=== PATIENT | female | born 1985 | race Caucasian/White ===

== ENCOUNTER 2016-10-23 03:59 | Inpatient (IN) ==
[2016-10-23 05:31] LABS: Basophils % 0.2 %; Eosinophils # 0.1 K/mcL (0.0-0.6); Eosinophils % 0.3 %; Hematocrit 39.4 % (35.3-44.9); Hemoglobin 13.5 g/dL (11.5-15.4); Immature Granulocytes % 1.2 % (0-4); Lymphocytes # 1.5 K/mcL (0.6-4.6); Lymphocytes % 8.4 %; Mean Corpuscular HGB Conc 34.3 g/dL (31.6-35.5); Mean Corpuscular Hemoglobin 31.6 pg (28.0-33.3); Mean Corpuscular Volume 92.3 fL (83.0-100.0); Mean Platelet Volume 10.6 fL (9.4-12.4); Monocytes # 0.8 K/mcL (0.0-1.3); Monocytes % 4.3 %; Neutrophils # 15.2 K/mcL (1.6-8.9); Platelet Count 232 K/mcL (140-400); Red Blood Count 4.27 M/mcL (3.82-4.97); Red Cell Distribution Width 13.4 % (11.5-14.5); Segmented Neutrophils % 85.6 %
--- NOTE | 2016-10-23 05:44 | Anesthesia Evaluation PreOp ---
Date of Encounter: 10/23/16 Time of Encounter: 05:23 - Past History Planned Operation: vaginal del, Cardiac History: Denies any Significant Hx Pulmonary History: Denies Any Significant HX PHYSICAL SECURITY ENGINEER History: Denies Any Significant HX Other Medical History: Denies Any Significant HX Anesthesia History: No Prior Anesthetic Complications, Past Anesthesia Alcohol Use: none Drug use: none Anesthesia Results - Labs 10/23/16 05:26 Anesthesia Exam - HEENT Pupil (Motor): Pupils equal Mallampati: III Teeth: Normal Oral Opening: Greater than 3 - PHYSICAL SECURITY ENGINEER LOC: Oriented PHYSICAL SECURITY ENGINEER Motor: Normal RUE, Normal LUE, Normal RLE, Normal LLE, Normal Face PHYSICAL SECURITY ENGINEER Sensory: Normal: RUE, LUE, RLE, LLE, Face - Cardiac Rhythm: Regular Murmur: None - Pulmonary Breath Sounds: bilateral Clear Respiratory Effort: Symmetrical Anesthesia Assess/Plan ASA Score: 2 Modified [place] Scale for Level of Consciousness: Cooperative, oriented, and tranquil Anesthetic Plan: General, Regional Monitoring Plan: Standard Monitors
[2016-10-23] MEDS ORDERED: Epidural Premix (fent/bupiv) 110 ML EP ONE ×2 (05:54→17:59)
--- NOTE | 2016-10-23 06:20 | OB/GYN History & Physical ---
Date of Encounter: 10/23/16 Time of Encounter: 06:16 Assessment and Plan (1) 39 weeks gestation of Current visit: Yes Status: Acute Patient is a at 39 weeks + 4 days who presents with increasing contractions , no rupture of membranes. Will monitor progression of labor and augment as needed. History of Present Illness Chief complaint: 39 weeks gestation with increasing contractions HPI: Ms. Gómez is a 31 year old female at 39 weeks + 4 days who presents with increasing contractions. Patient reports that over the last several hours her contractions have been getting stronger and closer together. She denies any loss of fluids but reports good movement. She denies any headache, vision changes, SOB, chest pain or changes in bowel or bladder function. Patient was seen in the office yesterday by Dr. Sepulveda and was told at that time she was 3cm dilated. She denies any complications with blood pressure, blood sugar or bleeding during this . Past Med Surg Social Fam HX - Past Medical History Medical history: no medical history Psychiatric history: no psych history - Past Surgical History Surgical History: no surgical history - Social History Smoking Status: Former smoker Alcohol use: none Drug use: none - Family History Sister Living Status: Still Living Hx Family Endocrine Disorder: Yes (diabetes type 1) Obstetrical History - Pregnancies : 1 Para: 0 Term: 0 : 0 Ab's: 0 Livin Review of System OB - Constitutional Constitutional ROS IM: no chills, no fever(s) - Cardiovascular Cardiovascular: no chest pain, no palpitations - Respiratory Respiratory: no cough, no dyspnea, no wheezing - Gastrointestinal Gastrointestinal: no constipation, no diarrhea, no nausea, no vomiting - Genitourinary Genitourinary: no urinary frequency, no urinary hesitancy - Neurological Nerological: no confusion, no headache(s), no other visual disturbances Exam - Constitutional Constitutional: well developed, well nourished, no acute distress, average body habitus - HEENT HEENT: Normocephaly, Mucus Membranes Moist - Lungs Respiratory exam: CTAB - Cardiovascular Cardiovascular exam: RRR - Abdomen Abdomen: Present: bowel sounds normal, gravid - Extremities Extremities exam: normal inspection - Cervix Dilation: 3 (per nursing evaluation) Results Result Diagrams: 10/23/16 05:26 Abnormal lab results WBC 17.8 K/mcL (4.3-11.1) H 10/23/16 05:26 Neutrophils # 15.2 K/mcL (1.6-8.9) H 10/23/16 05:26 All other labs normal.
--- NOTE | 2016-10-23 08:21 | OB Labor Progress Note ---
Date of Encounter: 10/23/16 Time of Encounter: 08:19 Labor Progress Note - Subjective Subjective: The patient is uncomfortable with contractions which are spontaneous but not regular. Overnight she has made a mild amount of cervical change. She has not felt comfortable going home and would like to have her labor augmented. - Vital Signs Vital Signs: Afebrile, vital signs stable - Cervix Cervix: 3-4/80/-1 per RN - Heart Tones Heart Tones: 130s baseline CAT 1 - [place]: Irregular every 4-6 minutes, mild to palpation - Interventions Interventions: 39 week 4 day IUP with prolonged latent phase labor - Plan Plan: Augmentation with by mouth Cytotec. Risks and benefits are reviewed with patient and she is agreeable. She is requesting an epidural and contractions become more uncomfortable and frequent
[2016-10-23] MEDS ORDERED: Ondansetron 4 MG/2 ML VIAL IVP PRN ×2 (08:31→11:31)
[2016-10-23] MEDS ORDERED: miSOPROStol 25 MCG TABLET PO SCH ×2 (08:31→12:00)
[2016-10-23] MEDS ORDERED: Famotidine 20 MG/2 ML VIAL IVP PRN (08:31)
[2016-10-23] MEDS ORDERED: Naloxone 0.4 MG/ML INJ IVP PRN (08:31)
[2016-10-23] MEDS: Ringers Solution, Lactated 1,000 ML IVC SCH ×2 (10:06→16:26)
[2016-10-23] MEDS ORDERED: *HR* FentaNYL (PF) 100 MCG/2 ML VIAL ONE (10:45)
[2016-10-23] MEDS ORDERED: Bupivacaine-MPF 0.25% 10 ML VIAL ONE (10:45)
[2016-10-23] MEDS ORDERED: Bupivacaine-MPF 0.25% 10 ML VIAL EP ONE (11:31)
[2016-10-23] MEDS ORDERED: EPHEDrine 50 MG/ML VIAL IVP PRN (11:31)
[2016-10-23] MEDS ORDERED: *HR* FentaNYL (PF) 100 MCG/2 ML VIAL EP ONE (11:31)
--- NOTE | 2016-10-23 11:34 | Anesthesia Procedures ---
Date of Encounter: 10/23/16 Time of Encounter: 10:55 Procedures: Anesthesia - Epidural/Spinal Patient ID/Chart reviewed: Yes Patient examined: Yes OB Eval: Gestational age: 39.4 OB Eval: : 1 OB Eval: Hx Para: 0 OB Eval: Dilated at (cm): 4 OB Eval: Contractions: Non-stressed pattern Consent Obtained: Yes Supplemental Oxygen: None/Room Air Site Prep: Aseptic Technique, Sterile prep and drape, Povidone-Iodine 1% Patient position: upright Local Anesthetic: Lidocaine 1% Amount of Local Anesthetic used: 3 Touhy Needle Gauge: 18 Touhy Needle Depth (cm): 7 Catheter Depth at Skin (cm): 14 Test Dose (1.5% Lido + Epi): Volume given (mls): 3 Test Dose Result: Negative Loading Dose: 0.25% Marcaine (mls): 10 Loading Dose: Fentanyl (mcg): 100 Loading Dose Administered: Thru Catheter Infusion Med: 0.125% Bupivacaine w/ 2 mcg/ml Fentanyl Infusion Rate (mls/hr): [address]: Tegaderm, Tape Interspace Used: L4-L5 Loss of Resistance (CHELSY): Yes Blood: No CSF: No Paresthesia: No Procedure: ALLISON placed in upright position 1st pass without any immediate noted complications. VSS throughout. Vitals + FHT's: 1055 BP 145 85 R 16 P 92 Spo2 98 1130 125/67 R 16 P 78 Spo2 97 FHT 120s
[2016-10-23] MEDS ORDERED: Epidural Premix (fent/bupiv) 110 ML EP SCH (11:45)
--- NOTE | 2016-10-23 14:01 | OB Labor Progress Note ---
Date of Encounter: 10/23/16 Time of Encounter: 13:59 Labor Progress Note - Subjective Subjective: Patient resting in bed, denies any pain at this time. Discussed POC with patient. Patient denies any questions or concerns. - Cervix Cervix: 7/100/-1 - Heart Tones Heart Tones: 120 bpm moderate variability +15x15 accels no decels noted. Cat. 1 tracing. - [place]: 3-4 min apart - Interventions Interventions: SVE, AROM small amount of clear fluid. IUPC placed without difficulty. Patient tolerated well. Pericare provided. - Plan Plan: Continue labor management. Will start Pitocin per protocol if needed for adequate labor pattern.
[2016-10-23] MEDS ORDERED: Oxytocin 20 units/ LR 1000 mL 20 UNIT/1,000 ML BAG IVC ONE ×2 (20:30→22:19)
--- NOTE | 2016-10-23 21:33 | OB/GYN Procedure Note ---
Delivery - Delivery Date: 10/23/16 Provider: Criselda Shoemaker Intrapartum events: none Delivery induction: none Delivery augmentation: rupture of membranes (cytotec 25 mcg) Delivery monitor: external FHT, external uterine, internal uterine Anesthesia: epidural Estimated Blood Loss: 100 - Infant (s) Infant A Infant Delivery Date: 10/23/16 Infant Delivery Time: 21:07 Presentation: vertex Position: RITCHIE Route of delivery: Gender: Female Viability: Viable Pounds: 6 Ounces: 12 at 1 minute: 9 at 5 mins: 9 Shoulder Dystocia: not encountered Specimens collected: cord blood Placenta: spontaneous, uterine exploration Cord: 3 umbilical vessels - Repair Episiotomy: none Laceration Description: Perineal - 2nd Degree, Labial - Complications Delivery complications: none Delivery comments: The patient was complete and pushing with a spontaneous vaginal delivery in the RITCHIE position with an epidural for anesthesia of a vigorous female infant weighing 6 lbs. 12 oz. with Apgars of 9 at 1 minute and 9 at 5 minutes. The infant was placed on the maternal abdomen and cord was clamped and cut after pulsations ceased. Cord blood was obtained. Placenta was delivered spontaneous and intact. Uterine cavity was explored and no retained products of conception were identified. No cervical lacerations noted. There was a superficial right labial laceration which was repaired with 4-0 Vicryl in a running nonlocking fashion. There was a second-degree midline perineal laceration which was repaired with 3-0 Vicryl in the usual fashion. Estimated blood loss 100 mL complications none. Mother and infant recovering in stable condition in the LDR. - Disposition Mom disposition: stable in LDR [place] disposition: stable in LDR
[2016-10-24] MEDS ORDERED: Measles/Mumps/Rubella Vacc 0.5 ML VIAL SQ PRN (00:11)
[2016-10-24] MEDS ORDERED: *HR* HYDROcodone/Acet 5/325 mg TABLET PO PRN (00:11)
[2016-10-24] MEDS ORDERED: Ibuprofen 600 MG TABLET PO PRN (00:11)
[2016-10-24] MEDS ORDERED: Rho Immune Globulin 1,500 UNIT SYRINGE IM PRN (00:11)
[2016-10-24] MEDS ORDERED: Oxytocin 20 units/ LR 1000 mL 20 UNIT/1,000 ML BAG IVC ONE (00:11)
[2016-10-24] MEDS ORDERED: Oxytocin 20 units/ LR 1000 mL 20 UNIT/1,000 ML BAG IV SCH (00:15)
[2016-10-24] MEDS: Prenatal Vit/FA 1 EACH TABLET PO SCH (08:11)
--- NOTE | 2016-10-24 09:52 | OB/GYN Progress Note ---
Date of Encounter: 10/24/16 Time of Encounter: 09:50 - Assessment and Plan (1) Status post vaginal delivery Current Visit: Yes Status: Acute Continue routine care discharge home tomorrow (2) Breast feeding status of mother Current Visit: Yes Status: Acute support prn Subjective - Subjective Principal diagnosis: day 1 Interval history: Patient doing well. Female is breast feeding. Patient denies any questions or concerns. Fundus is firm at U/1. small amount of lochia noted without clots. Patient reports: appetite normal, voiding normally, pain well controlled, ambulating normally [place]: doing well, nursing well Objective - Latest Vital Signs Latest vital signs: Vital Signs Temp Pulse Resp BP Pulse Ox 10/24/16 08:35 97.5 F L 86 16 111/71 98 10/24/16 01:50 98.4 F 84 16 115/71 95 10/24/16 01:00 98.2 F 92 16 109/64 95 10/23/16 23:50 97.8 F 89 16 115/76 96 Intake and Output 10/23/16 10/24/16 10/24/16 23:59 07:59 15:59 Intake Total 0 / 0 500 / 500 Output Total 850 / 850 500 / 500 Balance -850 / -850 0 / 0 Intake: Oral 0 / 0 500 / 500 Output: Urine 850 / 850 500 / 500 Other: Weight 82.6 kg 82.5 kg Patient Weight 10/24/16 23:59 Weight 82.5 kg - Exam Lungs: bilateral: normal Chest: Normal S1, Normal S2 Extremities: Present: normal Abdomen: Present: normal appearance, soft Uterus: Present: normal, firm Uterus Position: 1 Finger Below Umbilicus, Midline - Labs Labs: Laboratory Results - last 24 hr 10/23/16 21:30 Baby's Blood Type O RH NEGATIVE Mother's Blood Type O RH NEGATIVE Rhogam Indicated NO
[2016-10-25 08:20] VITALS: BP 111/74
[2016-10-25] MEDS: Prenatal Vit/FA 1 EACH TABLET PO SCH (08:26)
--- NOTE | 2016-10-25 09:31 | Discharge Summary ---
Date of Encounter: 10/25/16 Time of Encounter: 09:29 - Discharge Diagnosis (1) Status post vaginal delivery Priority: Primary Status: Acute Comments: Continue routine care discharge home today (2) Breast feeding status of mother Priority: Secondary Status: Acute Comments: continue support prn - Discharge Medications Prescriptions: Breast Pump [BREAST PUMP] 1 each .ROUTE AD #1 each Home Medications: Breast Pump [BREAST PUMP] 1 each .ROUTE AD #1 each 10/25/16 [Rx] Vit/FA 1 each PO DAILY tablet 10/25/16 [Rx] Allergies/Adverse Reactions: Allergies Penicillins Allergy (Verified 10/23/16 08:29) Numbness numbness to legs. Data Procedures and tests throughout hospitalization: Laboratory Tests 10/23/16 10/23/16 05:26 21:30 WBC 17.8 H RBC 4.27 Hgb 13.5 Hct 39.4 MCV 92.3 MCH 31.6 MCHC 34.3 RDW 13.4 Plt Count 232 MPV 10.6 Immature Gran % 1.2 Seg Neutrophils % 85.6 Lymphocytes % 8.4 Monocytes % 4.3 Eosinophils % 0.3 Basophils % 0.2 Neutrophils # 15.2 H Lymphocytes # 1.5 Monocytes # 0.8 Eosinophils # 0.1 Basophils # 0.0 Baby's Blood Type O RH NEGATIVE Mother's Blood Type O RH NEGATIVE Rhogam Indicated NO Date of admission: 10/23/16 03:59 Primary care physician: PCP NO Consults: 10/24/16 00:11 Consult to Communication Analyst [CONS] Routine Comment: Vaginal delivery, consult needed Discharging clinician: Jemima Sullivan Anticipated date of discharge: 10/25/16 - Patient Status Disposition: Home, Self-Care Condition: Good Functional capacity at discharge: independent ambulation - Discharge Instructions Follow Up With: NO,PCP [Primary Care Provider] - Erlinda Sepulveda DO [Partnered Physician] - - Diet and Activity Activity: increase activity as tolerated Diet: regular diet Hospital Course Delivery: Episiotomy: none Other procedures: none complications: none Discharge diagnosis: IUP at term delivered [place] baby: female (breast feeding) Time Attestation: Total time spent providing and/or coordinating discharge services: Time Spent: Less than 30 minutes Exam - Constitutional Vitals: Temp Pulse Resp BP Pulse Ox 98.0 F 77 16 111/74 98 10/25/16 08:18 10/25/16 08:18 10/25/16 08:18 10/25/16 08:18 10/24/16 21:00 General appearance IM: A&O X 3, pleasant, answers questions appropriately - Respiratory Respiratory exam: Present: CTAB - Cardiovascular Cardiovascular exam IM: Present: RRR, +S1, +S2 - GI/Abdominal GI/Abdominal exam IM: normal bowel sounds - Uterine Tone: Firm Uterus Position: 2 Fingers Below Umbilicus, Midline - Extremities Exam Extremities exam IM: Present: full ROM, normal capillary refill, normal inspection - Neurological Exam Neurological exam: alert, oriented X3, reflexes normal
== END 2016-10-25 10:50 | disposition home or self-care (01) | DRG 775 ==
LOC: 1NENULAB → 1NENUOBS 23:46
PROVIDERS: ADMIT Advanced Practice Midwife; ATTEND Obstetrics & Gynecology